=== PATIENT | male | born 1985 | race Hispanic/Latino ===

== ENCOUNTER 2017-07-22 11:09 | Emergency (ER) | payer OTHER, MEDICAID ==
[2017-07-22] MEDS ORDERED: Naproxen 550 mg Tab PO STA (13:47)
[2017-07-22] MEDS ORDERED: Naproxen 550 mg Tab PO ONE (13:52)
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
--- NOTE | 2017-07-22 15:40 | CT ---
CT lumbar spine History: Low back pain. Comparison: None available. Technique: Multiple contiguous axial images were performed through the lumbar spine without the use of intravenous contrast. Subsequently, sagittal and coronal reformatted images were obtained. This CT exam was performed using one or more of the following dose reduction techniques: Automated exposure control, adjustment of the mA and/or kV according to patient size, and/or use of iterative reconstruction technique. Findings: Six lumbar type vertebral bodies noted for the purposes of this study. Grade 2 anterolisthesis L5 on L6 with associated prominent bilateral pars defects at that level. Deformity of the left aspect of the L5 vertebral body with some possible right-sided subluxation in relationship to the L6 vertebral body. Moderate bilateral neural foraminal narrowing at the L5-6 level. Probable posterior disc bulge at this level. This would be better evaluated with MRI. Posterior disc osteophyte complex at the L6-S1 level. Prominent lower level facet hypertrophy and sclerosis. Inferior endplate concavities at the L4 and L5 vertebral bodies. Schmorl's node formation at the superior endplate of the L6 vertebral body. Additional posterior disc bulge at the L4-5 level. This would be better evaluated with MRI. Incidentally noted is a mild inferior compression deformity of the T12 vertebral body. Correlation with thoracic spine MRI is recommended to determine chronicity of this compression fracture. Impression: 1. Age indeterminate compression deformity/ fracture of the inferior endplate of the T12 vertebral body. Correlation with thoracic spine MRI is recommended for further evaluation. 2. Prominent deformities of the lower lumbar spine as described above, age indeterminate. Correlation with MRI of the lumbar spine is recommended for further evaluation.
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
[2017-07-22 19:04] VITALS: BP 122/83; PULSE 71; RESP 18; TEMP 97.9
[2017-07-22 19:05] VITALS: O2SAT 99
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
== END 2017-07-22 19:08 | disposition home or self-care (01) ==
LOC: C.ER 11:09
DX: S32.9XXA Fracture of unspecified parts of lumbosacral spine and pelvis, initial encounter for closed fracture (principal); V03.90XA Pedestrian on foot injured in collision with car, pick-up truck or van, unspecified whether traffic or nontraffic accident, initial encounter; Y92.410 Unspecified street and highway as the place of occurrence of the external cause; Q76.49 Other congenital malformations of spine, not associated with scoliosis